=== PATIENT | female | born 1975 | race African-American/Black ===

== ENCOUNTER 2016-10-17 12:06 | Emergency (ER) | payer OTHER ==
[~2016-10-17] VITALS: Ht 165.1 cm; Wt 104.5 kg
[~2016-10-17 12:06] MED LIST: AMITRIPTYLINE H50 M1 PO; CHANTIX 1MG1 MG PO; COGENTIN .0.5 MG/TAB PO; COLACE 100100 MG/CAP PO; CYMBALTA 60MG60 MG PO; FLAGYL500 MG PO; FLOVENT 220MCG7.9 GM IH; GLUMETZA500 MG PO; INDERAL 10MG10 MG PO; KLONOPIN 0.5MG0.5 MG PO; KLONOPIN 1MG1 MG PO; LAMICTAL 25MG T25 MG PO; MICARDIS20 MG PO; MOTRIN 800800 MG/TAB PO; NASONEX0.05 MG/AC NS; NEURONTIN600 MG/TAB PO; NEXIUM 40MG40 MG PO; PERCOCET 325 MG1 TA2 PO; PROVENTIL0.09 MG/A1 IH; PYRIDIUM200 M1 PO; RESTORIL30 MG PO; SEREVENT IH; SEROQUEL 1100 MG/TAB PO; SEROQUEL 200MG200 MG PO; SINGULAIR 110 MG/TAB PO; SKELAXIN 800MG800 MG PO; TEGRETOL 1100 MG/TAB PO; ULTRAM 50MG TAB50 MG PO; VALIUM 5MG T5 MG/TAB PO; VIIBRYD10 MG PO; ZYPREXA2.5 MG PO; ZYRTEC
[2016-10-17 12:11] VITALS: TEMP 98.7
[2016-10-17] MEDS ORDERED: ZANAFLEX 4MG TAB4 MG PO (12:26)
[2016-10-17] MEDS ORDERED: LEVSIN0.125 M1 PO (12:27)
[2016-10-17] MEDS ORDERED: ZYRTEC 10MG10 MG PO (12:28)
[2016-10-17] MEDS ORDERED: PYRIDIUM 100MG100 MG PO (12:28)
[2016-10-17] MEDS ORDERED: INDERAL80 MG PO (12:29)
[2016-10-17] MEDS ORDERED: LIPITOR20 MG PO (12:29)
[2016-10-17 12:50] VITALS: BP 139/86; PULSE 68
== END 2016-10-17 13:03 | disposition home or self-care (01) ==
LOC: COL.ER 12:06
DX: G89.29 Other chronic pain (principal); M54.9 Dorsalgia, unspecified; E11.9 Type 2 diabetes mellitus without complications; Z79.84 Long term (current) use of oral hypoglycemic drugs; J45.909 Unspecified asthma, uncomplicated; G43.909 Migraine, unspecified, not intractable, without status migrainosus
CPT/HCPCS: J1885

== ENCOUNTER → 2017-01-13 | Outpatient (CLI) | payer OTHER ==
[~2017-01-13] MED LIST changes: +INDERAL80 MG PO; +LEVSIN0.125 M1 PO; +LIPITOR20 MG PO; +PYRIDIUM 100MG100 MG PO; +ZANAFLEX 4MG TAB4 MG PO; +ZYRTEC 10MG10 MG PO
== END ==
LOC: MHCPAIN 11:44
DX: G89.29 Other chronic pain (principal); M79.1 Myalgia; M79.2 Neuralgia and neuritis, unspecified; F17.210 Nicotine dependence, cigarettes, uncomplicated
CPT/HCPCS: G0463

== ENCOUNTER → 2017-09-01 | Outpatient (CLI) | payer OTHER | LOC: COL.RAD 08:02 | DX: K59.00 Constipation, unspecified (principal); R19.7 Diarrhea, unspecified | CPT/HCPCS: A9541 ==

== ENCOUNTER → 2017-10-18 | Outpatient (CLI) | payer OTHER | LOC: COL.RAD 08:21 | DX: R10.9 Unspecified abdominal pain (principal); R11.2 Nausea with vomiting, unspecified; R14.2 Eructation; K58.9 Irritable bowel syndrome, unspecified | CPT/HCPCS: A9537 ==

== ENCOUNTER 2020-03-26 13:17 | Emergency (ER) | payer OTHER ==
[~2020-03-26] VITALS: Ht 165.1 cm; Wt 96.4 kg
[2020-03-26 13:21] VITALS: TEMP 97.4
[2020-03-26 13:35] LABS: COLLECTION METHOD CLEAN CATCH
[2020-03-26] MEDS ORDERED: TRULICITY1.5 MG/0.5 SQ (13:37)
[2020-03-26] MEDS ORDERED: PROTONIX 40MG T40 MG PO (13:38)
[2020-03-26] MEDS ORDERED: ZOLOFT 100MG100 MG PO (13:39)
[2020-03-26] MEDS ORDERED: LYRICA 100MG C100 M1 PO (13:39)
[2020-03-26] MEDS ORDERED: CELEBREX 200MG200 MG PO (13:40)
[2020-03-26] MEDS ORDERED: HCTZ12.5TAB PO (13:41)
[2020-03-26] MEDS ORDERED: PRINIVIL10 MG PO (13:41)
[2020-03-26] MEDS ORDERED: CRESTOR 10MG10 MG PO (13:42)
[2020-03-26 14:09] LABS: PH 6 (5-8); SQUAMOUS EPITHELIAL 0-2 /hpf; URINE APPEARANCE Cloudy; URINE BACTERIA None Seen /hpf; URINE BILIRUBIN Negative (NEGATIVE); URINE BLOOD 2+ (NEGATIVE); URINE COLOR Straw; URINE GLUCOSE Negative (NEGATIVE); URINE KETONE Trace (NEGATIVE); URINE LEUKOCYTE ESTERASE 3+ (NEGATIVE); URINE NITRATE Negative (NEGATIVE); URINE PROTEIN(semi-quant) Negative (NEGATIVE); URINE RBC >50 /hpf; URINE UROBILINOGEN Negative (NEGATIVE)
[2020-03-26] MEDS ORDERED: OMNICEF 300MG300 MG PO (14:46)
[2020-03-26 15:15] VITALS: BP 120/68; PULSE 69
== END 2020-03-26 15:15 | disposition home or self-care (01) ==
LOC: COL.ER 13:17
PROVIDERS: Family Medicine
DX: N39.0 Urinary tract infection, site not specified (principal); N89.8 Other specified noninflammatory disorders of vagina; I10 Essential (primary) hypertension; E11.9 Type 2 diabetes mellitus without complications; F41.9 Anxiety disorder, unspecified; F17.200 Nicotine dependence, unspecified, uncomplicated; Z90.710 Acquired absence of both cervix and uterus; Z88.1 Allergy status to other antibiotic agents; Z88.5 Allergy status to narcotic agent; Z88.6 Allergy status to analgesic agent; Z79.4 Long term (current) use of insulin

== ENCOUNTER → 2020-04-12 | Outpatient (CLI) | payer OTHER ==
[~2020-04-12] MED LIST changes: +CELEBREX 200MG200 MG PO; +CRESTOR 10MG10 MG PO; +HCTZ12.5TAB PO; +LYRICA 100MG C100 M1 PO; +OMNICEF 300MG300 MG PO; +PRINIVIL10 MG PO; +PROTONIX 40MG T40 MG PO; +TRULICITY1.5 MG/0.5 SQ; +ZOLOFT 100MG100 MG PO
== END ==
LOC: COL.RAD 09:59
DX: M47.22 Other spondylosis with radiculopathy, cervical region (principal); M48.02 Spinal stenosis, cervical region

== ENCOUNTER → 2020-05-23 | Outpatient (CLI) | payer OTHER ==
[~2020-05-23] MED LIST changes: +CEFTIN500 MG PO; +NORCO 325 MG-51 TAB PO
== END ==
LOC: COL.VAS 05-22 13:15
DX: R06.02 Shortness of breath (principal)

== ENCOUNTER 2020-09-27 18:33 | Emergency (ER) | payer OTHER ==
[~2020-09-27] VITALS: Ht 165.1 cm; Wt 96.4 kg
[~2020-09-27 18:33] MED LIST changes: -CEFTIN500 MG PO; -NORCO 325 MG-51 TAB PO
[2020-09-27 18:46] VITALS: TEMP 98.7
[2020-09-27 23:15] VITALS: BP 130/65; PULSE 80
== END 2020-09-27 23:21 | disposition home or self-care (01) ==
LOC: COL.ER 18:33
DX: S99.912A Unspecified injury of left ankle, initial encounter (principal); Z98.890 Other specified postprocedural states; W01.198A Fall on same level from slipping, tripping and stumbling with subsequent striking against other object, initial encounter; Y99.0 Civilian activity done for income or pay

== ENCOUNTER 2020-12-19 09:10 | Emergency (ER) | payer OTHER ==
[~2020-12-19] VITALS: Ht 165.1 cm; Wt 93.2 kg
[2020-12-19 10:45] LABS: COLLECTION METHOD CLEAN CATCH
[2020-12-19 10:54] LABS: MUCOUS Present /lpf; PH 5 (5-8); SQUAMOUS EPITHELIAL 0-2 /hpf; URINE APPEARANCE Turbid; URINE BACTERIA Moderate /hpf; URINE BILIRUBIN Negative (NEGATIVE); URINE BLOOD 3+ (NEGATIVE); URINE COLOR Amber; URINE GLUCOSE 3+ (NEGATIVE); URINE KETONE Negative (NEGATIVE); URINE LEUKOCYTE ESTERASE 2+ (NEGATIVE); URINE NITRATE Positive (NEGATIVE); URINE PROTEIN(semi-quant) 2+ (NEGATIVE); URINE RBC >50 /hpf; URINE UROBILINOGEN >=4.0 mg/dL (NEGATIVE)
[2020-12-19 11:07] LABS: BASO # 0.1 K/mm3 (0.0-0.2); BASO % 0.5 % (0.0-2.0); GRAN # 14.6 K/mm3 (1.4-6.5); GRAN % 88.6 % (42.2-75.2); HEMOGLOBIN 11.9 g/dl (12.5-16.0); LYMPH # 0.9 K/mm3 (1.2-3.4); LYMPH % 5.3 % (20.0-51.0); MEAN CELL VOLUME 86 fl (80.0-100.0); MEAN CORPUSCULAR HEMOGLOBIN 29 pg (27.0-31.0); MEAN CORPUSCULAR HGB CONC 33 g/dl (33.0-37.0); MEAN PLATELET VOLUME 11.2 fl (7.4-10.4); MONO # 0.8 K/mm3 (0.1-0.6); MONO % 4.9 % (1.7-9.3); PLATELET COUNT 222 K/mm3 (130-400); RED BLOOD COUNT 4.16 M/mm3 (4.10-5.30); REDCELL DISTRIBUTION WIDTH-CV 14.3 % (11.5-14.5)
[2020-12-19 11:08] LABS: HEMATOCRIT 35.8 % (37.0-47.0)
[2020-12-19 11:24] LABS: ALBUMIN 3.4 gm/dL (3.5-5.0); BILIRUBIN,TOTAL 0.7 mg/dL (0.2-1.2); C-REACTIVE PROTEIN 10.7 mg/dL (0.00-0.50); CALCIUM 9.4 mg/dL (8.4-10.2); CREATININE, serum 1.21 mg/dL (0.57-1.11); TOTAL PROTEIN 6.7 gm/dL (6.2-8.1)
[2020-12-19 11:26] LABS: POTASSIUM 2.9 mmol/L (3.5-4.5)
[2020-12-19] MEDS ORDERED: ULTRAM 50MG TAB50 MG PO (12:21)
[2020-12-19] MEDS ORDERED: CEFTIN500 MG PO (14:29)
[2020-12-19] MEDS ORDERED: NORCO 325 MG-51 TAB PO (14:29)
[2020-12-19 16:03] VITALS: BP 116/68; PULSE 116
[2020-12-19 16:14] VITALS: TEMP 102.9
== END 2020-12-19 16:21 | disposition home or self-care (01) ==
LOC: COL.ER 09:10
PROVIDERS: Nurse Practitioner
DX: N12 Tubulo-interstitial nephritis, not specified as acute or chronic (principal); E87.6 Hypokalemia; M25.512 Pain in left shoulder; I10 Essential (primary) hypertension; Z87.891 Personal history of nicotine dependence; Z20.822 Contact with and (suspected) exposure to COVID-19; Z88.1 Allergy status to other antibiotic agents; Z88.5 Allergy status to narcotic agent; Z79.899 Other long term (current) drug therapy
CPT/HCPCS: J0696; J2270; J2405; J7030; Q9967

== ENCOUNTER 2021-08-10 11:35 | Emergency (ER) | payer OTHER ==
[~2021-08-10] VITALS: Ht 165.1 cm; Wt 95.5 kg
[~2021-08-10 11:35] MED LIST changes: +CEFTIN500 MG PO; +NORCO 325 MG-51 TAB PO
[2021-08-10 12:03] VITALS: TEMP 98.2
[2021-08-10] MEDS ORDERED: NORCO 325 MG-51 TAB PO (14:44)
[2021-08-10 15:07] VITALS: BP 144/91; PULSE 87
== END 2021-08-10 15:07 | disposition home or self-care (01) ==
LOC: COL.ER 11:35
DX: S93.401A Sprain of unspecified ligament of right ankle, initial encounter (principal); S70.01XA Contusion of right hip, initial encounter; Z88.5 Allergy status to narcotic agent; W01.198A Fall on same level from slipping, tripping and stumbling with subsequent striking against other object, initial encounter

== ENCOUNTER 2023-07-02 13:18 | Emergency (ER) | payer OTHER ==
[~2023-07-02] VITALS: Ht 165.1 cm; Wt 79.5 kg
[2023-07-02 13:28] VITALS: BP 160/100; TEMP 98.5
[2023-07-02] MEDS ORDERED: NORCO 325 MG-51 TAB PO (14:15)
[2023-07-02] MEDS ORDERED: AMOXICILLIN 8751 TAB PO (14:15)
[2023-07-02 14:43] VITALS: PULSE 58
== END 2023-07-02 14:43 | disposition home or self-care (01) ==
LOC: COL.ER 13:18
DX: K04.7 Periapical abscess without sinus (principal); Z88.1 Allergy status to other antibiotic agents; Z88.6 Allergy status to analgesic agent